=== PATIENT | male | born 1995 | race Hispanic/Latino ===

== ENCOUNTER 2018-01-16 16:14 | Inpatient (IN) | payer BC ==
[2018-01-16 16:53] LABS: #Eosinphils 0.1 thou/uL (0.0-0.7); #Lymphocytes 1.4 thou/uL (1.20-3.40); #Monocytes 0.5 thou/uL (0.11-0.59); #Neutrophils 5.6 thou/uL (1.40-6.50); %Basophils 0.3 % (0.0-1.0); %Eosinophils 0.7 % (0.0-10.0); %Lymphocytes 18.6 % (21.0-51.0); %Neutrophils 73.4 % (42.0-75.0); Hemoglobin 15.7 g/dL (14.0-18.0); Mean Corpuscular HGB CONC 34.5 g/dL (32.0-36.0); Mean Corpuscular Hemoglobin 32.9 pg (27.0-31.0); Mean Corpuscular Volume 95.1 fL (78.0-98.0); Mean Platelet Volume 10.4 fL (7.4-10.4); Platelet Count 174 thou/uL (130-400); RBC Distribution Width 11.9 % (11.5-14.5); Red Blood Cell (RBC) Count 4.79 mill/uL (4.70-6.10); White Blood Cell (WBC) Count 7.7 thou/uL (4.8-10.8)
--- NOTE | 2018-01-16 17:08 | RAD ---
PORTABLE AP CHEST X-RAY 01/16/18 HISTORY: AICD activated seven times while exercising. COMPARISON: None available. FINDINGS: There is a single lead left subclavian AICD lead noted in place. The cardiac silhouette and pulmonary vasculature are within normal limits for the portable technique of the study. The lungs are clear. O sseous structures are intact. IMPRESSION: No acute cardiopulmonary process. POS: H
[2018-01-16 17:12] LABS: ALT (SGPT) 26 U/L (8-55); AST (SGOT) 23 U/L (5-34); Albumin 4.5 g/dL (3.5-5.0); Alkaline Phosphatase 67 U/L (40-150); Anion Gap 12 mmol/L (10-20); BUN (Urea Nitrogen) 12 mg/dL (8.9-20.6); Bilirubin, Total 0.5 mg/dL (0.2-1.2); Calc. Creatinine Clearance 0 mL/min (70-130); Carbon Dioxide 24 mmol/L (22-29); Chloride 108 mmol/L (98-107); Estimated GFR-MDRD 81; Globulin 3.2 g/dL (2.4-3.5); Glucose 93 mg/dL (70-105); Magnesium 1.9 mg/dL (1.6-2.6); Potassium 3.9 mmol/L (3.5-5.1); Protein, Total 7.7 g/dL (6.0-8.3); Sodium 140 mmol/L (136-145)
[2018-01-16] MEDS ORDERED: Amiodarone 200 MG TAB PO SCH (21:00)
[2018-01-16 22:52] VITALS: BMI 34.0
[2018-01-17] MEDS ORDERED: Ondansetron PF 4 MG/2 ML Vial IVP PRN (00:30)
--- NOTE | 2018-01-17 06:34 | HP ---
PRIMARY CARE DOCTOR: Britt Bosch MD CODE STATUS: Full code. TIME OF EVALUATION: 11:00 p.m. CHIEF COMPLAINT: "My AICD was firing." HISTORY OF PRESENT ILLNESS: This is a 23-year-old male patient with past medical history of arrhythmias including V-tach. The patient had been placed in a defibrillator in the past. The patient has reported he has been developing more tolerance to exercises as recommended by Cardiology. However, he states yesterday he got his bike and he was doing some exercise and the defibrillator was started firing multiple times. It has been verified with the [employer] that the patient had some PSVT and one of them turning to V-tach and the patient was shocked by the defibrillator; this report has been given by the ER. The patient reported that he feels lightheaded, but he did not pass out, exacerbated by the exercise, and symptoms improved by itself. REVIEW OF SYSTEMS: CONSTITUTIONAL: No fever, chills, or generalized weakness. RESPIRATORY: No cough, sputum production, or shortness of breath. CARDIOVASCULAR: Palpitations, no chest pain. GASTROINTESTINAL: No nausea. No vomiting, diarrhea, or abdominal pain. CERTIFIED ADDICTION COUNSELOR: The patient has no dizziness or headache. The patient reported feeling lightheaded during the episode. GENITOURINARY: No burning on urination. EXTREMITIES: No leg edema. All other systems were reviewed and negative except for the findings mentioned above. PAST MEDICAL HISTORY: Reported in the HPI. FAMILY HISTORY: Reviewed and noncontributory for current presentation. No reported medical history in the parents. PSYCH HISTORY: No previous psych history. SOCIAL HISTORY: No alcohol or drugs. No smoking history. KNOWN ALLERGIES: No known allergies. REPORTED MEDICATIONS: 1. Aspirin. 2. Carvedilol. 3. Lisinopril. PHYSICAL EXAMINATION: VITAL SIGNS: On presentation 140/86 with a heart rate of 95, respiratory rate was 20, temperature 97.7, pain was 0/10, and oxygen saturation was 99 on room air. GENERAL APPEARANCE: The patient is alert, oriented, not in acute distress. HEENT: Eyes, normal conjunctivae. Moist oral mucosa. Anicteric. No JVD. RESPIRATORY: Bilateral air entry. No rales. No wheezing. Symmetric expansion. CARDIOVASCULAR: Normal rate, regular rhythm. No murmurs. No gallops. No edema. ABDOMEN: Soft. Normal bowel sounds. MUSCULOSKELETAL: Baseline range of motion and strength. No tenderness. SKIN: Warm and intact. No pallor. No rash. No redness. EXTREMITIES: Peripheral pulses are present. Capillary refill seems to be intact. NEURO: No evidence of any new focal weakness. Baseline speech. Cranial nerves seems to be intact. PSYCH: The patient is in good mood. No anxiety. Oriented. Optimal judgment. DIAGNOSTIC STUDIES: EKG was discussed with the performing physician from the ER. The patient had a normal sinus rhythm at the rate of 93. No ectopic conduction with incomplete RBBB. ST segments and T-waves are normal. Medication administration: The patient received amiodarone 400 mg as recommended by Dr. Adler. Chest x-ray was reviewed. The patient has no acute cardiopulmonary process. LABORATORY DATA: Labs were reviewed. The patient has a white count of 7.7, hemoglobin of 15.7, MCV 95, platelet count 174. Chemistry; sodium 140, potassium 3.9, chloride 108, carbon dioxide 24, anion gap 12, BUN 12, creatinine 1.1, GFR 81, glucose 93, calcium 10, magnesium 1.9. Total bilirubin 0.5, AST 23, ALT 26, alkaline phosphatase 67. Troponin was negative. Beta natriuretic peptide 16.4. Serum total protein 7.7, albumin 5.5, globulin 3.2, albumin-globulin ratio is 1.4. ASSESSMENT AND PLAN: The patient was placed in the hospital with the following medical problems: 1. Arrhythmia, paroxysmal supraventricular tachycardia, turning into ventricular tachycardia, had received cardioversion from [facility], Dr. Adler has been consulted. Amiodarone 400 mg has been given and the patient will need evaluation in the morning. We will monitor on tele. We will reconcile home medications. 2. Deep venous thrombosis prophylaxis. 3. Risk assessment. The patient is at high risk due to sudden life-threatening arrhythmias. Job ID: [id number]
[2018-01-17 07:13] LABS: #Basophils 0.1 thou/uL (0.0-0.2); #Eosinphils 0.1 thou/uL (0.0-0.7); #Lymphocytes 1.9 thou/uL (1.20-3.40); #Monocytes 0.9 thou/uL (0.11-0.59); #Neutrophils 4.4 thou/uL (1.40-6.50); %Basophils 0.7 % (0.0-1.0); %Eosinophils 1.4 % (0.0-10.0); %Lymphocytes 26.3 % (21.0-51.0); %Neutrophils 59.6 % (42.0-75.0); Hemoglobin 14.5 g/dL (14.0-18.0); Mean Corpuscular HGB CONC 33.1 g/dL (32.0-36.0); Mean Corpuscular Hemoglobin 31.5 pg (27.0-31.0); Mean Corpuscular Volume 95.1 fL (78.0-98.0); Mean Platelet Volume 10.6 fL (7.4-10.4); Platelet Count 169 thou/uL (130-400); Red Blood Cell (RBC) Count 4.61 mill/uL (4.70-6.10); White Blood Cell (WBC) Count 7.4 thou/uL (4.8-10.8)
[2018-01-17 07:34] LABS: Anion Gap 11 mmol/L (10-20); BUN (Urea Nitrogen) 18 mg/dL (8.9-20.6); Calc. Creatinine Clearance 167 mL/min (70-130); Calcium 9.7 mg/dL (7.8-10.44); Carbon Dioxide 26 mmol/L (22-29); Chloride 107 mmol/L (98-107); Estimated GFR-MDRD 77; Glucose 85 mg/dL (70-105); Potassium 3.4 mmol/L (3.5-5.1); Sodium 141 mmol/L (136-145)
[2018-01-17] MEDS: Amiodarone 200 MG TAB PO SCH ×3 (09:01→20:29)
[2018-01-17] MEDS: Lisinopril 5 MG TAB PO SCH ×2 (09:01→20:30)
[2018-01-17] MEDS: Aspirin 81 mg Enteric Coated Tablet PO SCH (09:02)
[2018-01-17] MEDS: Carvedilol 6.25 MG TAB PO SCH ×2 (09:02→20:29)
[2018-01-17] MEDS: Enoxaparin Sodium 40 MG/0.4 ML SYRINGE SC SCH (09:03)
--- NOTE | 2018-01-17 11:57 | PDOC.PN ---
- Subjective Encounter Start Date: 01/17/18 Encounter Start Time: 10:30 Subjective: Examined this morning, admitted for 9 shocks from AICD yesterday -: Denies c/o today, denies further activity from AICD - Objective Resuscitation Status - Order Detail: 01/17/18 00:30 Resuscitation Status Routine Resuscitation Status: FULL: Full Resuscitation Vital Signs & Weight: Vital Signs (12 hours) Temp Pulse Resp BP BP Pulse Ox 01/17/18 11:36 97.6 F 81 20 115/68 98 01/17/18 07:08 98.4 F 67 16 120/61 97 01/17/18 03:35 81 18 112/62 97 Weight Weight 120.468 kg I&O: 01/16/18 01/17/18 01/18/18 06:59 06:59 06:59 Intake Total 480 Balance 480 Result Diagrams: 01/17/18 06:17 01/17/18 06:17 Phys Exam - Physical Examination HEENT: PERRLA, moist MMs Neck: no nodes, no JVD Respiratory: clear to auscultation bilateral Cardiovascular: RRR, no significant murmur Gastrointestinal: soft, non-tender Musculoskeletal: no edema, pulses present Neurological: non-focal, normal sensation Lymphatic: no nodes Psychiatric: normal affect, A&O x 3 Skin: no rash, normal turgor Dx/Plan (1) Arrhythmia Code(s): I49.9 - CARDIAC ARRHYTHMIA, UNSPECIFIED Status: Acute Qualifiers: Arrhythmia type: ventricular tachycardia Qualified Code(s): I47.2 - Ventricular tachycardia Plan: Cardiology and EP consultation, Dr. Adler added Cordarone to his daily meds (2) Defibrillator discharge Code(s): Z45.02 - ENCNTR FOR ADJUST AND MGMT OF AUTOMATIC IMPLNTBL CARD DEFIB Status: Acute - Plan cont current plan of care, DVT proph w/SCDs -: Cardiology and EP consultation, added Cordarone -: Will continue to monitor heart rhythm, labs, VS * .
--- NOTE | 2018-01-17 21:28 | CON ---
DATE OF CONSULTATION: TYPE OF CONSULTATION: Cardiology PRIMARY CARE DOCTOR: Britt Bosch MD PRIMARY NURSES SUPERINTENDENT: Dr. Medina. REFERRING PHYSICIAN: Suzy Thompson MD REASON FOR CARDIOLOGY CONSULT: Multiple discharge from his defibrillator. HISTORY OF PRESENT ILLNESS: Mr. Wily Dixon is a 23-year-old male with significant history of SVT, status post cardioversion and AICD placement in August 2017. He has been following up with Dr. Medina and Dr. Townsend for his history of SVT and AICD placement. He has been doing relatively well since he had defibrillator placement in August 2017. He has been exercising 4 to 5 times a week without any cardiac complaints. In the October 2017, he followed up with Dr. Medina, and his amiodarone was stopped as his defibrillator interrogation showed normal and the patient also followed up with Dr. Townsend about one and a half month ago and he was told that his AICD did not show any abnormal arrhythmia and he was told to continue his current treatment. Yesterday, when he was bicycling outside the park he noticed that suddenly he felt so tried and when he stopped he felt some pushing like feeling from his back. He had it several times within 5 minutes and around 6th or 7th event shock, he called his friends, he was transferred to emergency department for further evaluation and treatment. The patient's AICD was interrogated, showing that he had total 9 treated episodes in VT zone yesterday around 4:30, he had total 20 episodes of SVT detected and also the AICD interrogation showed high RV threshold on January 16, 2018. He reported that he never had discharge before since defibrillator placement in August 2017. He never had cardiac complaints, shortness of breath, dizziness, lightheadedness, or any other complaints except about one month ago he presented to the ER for dizziness secondary to the dehydration. PAST MEDICAL HISTORY: History of SVT status post cardioversion in August 2017. PAST SURGICAL HISTORY: Defibrillator placement in August 2017, cardiac catheterization in August 2017, which showed normal. FAMILY HISTORY: The patient's father had history of hypertension. SOCIAL HISTORY: He is single. He works as a full-time. He denies tobacco, alcohol, or drug abuse. He exercises regularly. ALLERGIES: HE HAS NO KNOWN DRUG ALLERGIES. MEDICATIONS: Home medications: 1. Lisinopril 5 mg twice a day. 2. Carvedilol 6.25 mg twice a day. 3. Aspirin 81 mg once a day. REVIEW OF SYSTEMS: Twelve-point review of systems was negative unless otherwise mentioned in the HPI. PHYSICAL EXAMINATION: VITAL SIGNS: Blood pressure 120/61, temperature 98.4, pulse is 67 sinus rhythm, respiratory rate 16, and O2 saturation 97% on room air. GENERAL: The patient is alert and oriented x4, not in acute distress. HEENT: Eyes; extraocular muscle movements are intact. ENT and mouth, oral and nasal mucosa are moist without lesions. NECK: No JVD. Normal range of motion. RESPIRATORY: Clear to auscultation bilaterally. No wheezing, rales, or rhonchi noted. CARDIOVASCULAR: Regular rate and rhythm. Normal S1 and S2. There is no S3 or S4. No significant murmurs, heaves, or thrill noted. 2+ pulses in upper and lower extremities. Bilateral lower extremities, no edema. Carotid pulses are present without thrill or bruit. ABDOMEN: Soft, nontender, palpated. Bowel sounds are present. MUSCULOSKELETAL: The patient is able to move all extremities. SKIN: Warm and dry. No lesion, bruise, or rash noted. PSYCHIATRIC: The patient's mood is affect. No anxiety. NEUROLOGIC: The patient is alert and oriented x4. Nonfocal. LABORATORY DATA: WBC 7.4, hemoglobin 14.5, hematocrit 43.9, platelet 169. Sodium 141, potassium 3.4, BUN 18, creatinine 1.16. AST 23, ALT 26. BNP 16.4. Troponins 0.010. The patient's chest x-ray showed no acute cardiopulmonary process. The patient had a cardiac catheterization in August 2017 showed normal coronary artery disease with EF 15% to 20%. The patient had echocardiogram done at Dr. Medina's office in October 2017, showed EF 50% to 55%. ASSESSMENT AND PLAN: 1. History of ventricular tachycardia, status post AICD discharge. The patient already received amiodarone 400 mg last night. We would like patient's amiodarone from 400 three times a day for 1 week and we would like to wean it down. Also, the patient may need AICD evaluation by . At this moment, the patient did not have any abnormal rhythm on the telemetry. We would like to continue monitor on the telemetry. 2. Known ischemic cardiomyopathy status post AICD placement in August 2017. The patient's EF in October 2017 showed 50% to 55%. The patient denied any shortness of breath, abdomen bloating, or edema in the lower extremities. The patient is doing very well. The patient is going to follow up with EP, Dr. Townsend as outpatient. Thank you very much for allowing the Cardiology Service to participate in the care of this patient. We will follow along the patient's care team and make further recommendations as appropriate. Job ID: [id number]
--- NOTE | 2018-01-17 22:08 | CON ---
DATE OF CONSULTATION: 01/17/2018 CARDIOLOGY CONSULT NOTE INDICATION FOR CONSULTATION: A 23-year-old patient status post AICD implant for severe nonischemic cardiomyopathy who received 5 shocks yesterday while exercising. We were asked to see him due to the shocks from the ICD. HISTORY OF PRESENT ILLNESS: This very unfortunate 23-year-old gentleman was seen back in August of this year. He was found to have a severe decrease in left ventricular systolic function, it was deemed to be nonischemic. He had normal coronaries. Even he underwent an AICD implant, he has been followed by Dr. Medina and over time, the ejection fraction has now essentially improved, almost back to normal. His ejection fraction by last echocardiogram in October showed ejection fraction 50% to 55%. He had been placed on amiodarone in the past, this was also discontinued. The patient was back to his routine activities. He was out riding a bicycle yesterday, a mountain bike, when he knows he was feeling somewhat tired. He then stopped to rest and then received 5 shocks in succession for what appeared to be ventricular tachycardia. The device had tried to pace terminate several times from perhaps atrial tachycardia therapies, but then shocked the patient 5 times. These were all unsuccessful. He did receive earlier some ventricular therapies also, but most likely he was shocked for what was not true ventricular tachycardia. He may need to have his device somewhat readjusted to obtain a higher ventricular rate threshold prior to giving therapies and did not appear that there was a device malfunction, but appears that the patient was having tachycardia due to exercise and was misinterpreted by the device most likely. At this time, he is stable and denies any complaints. He did have the shocks yesterday. He was aware while he was doing the shocks. He did not have any syncopal episodes and otherwise has remained stable. PHYSICAL EXAMINATION: VITAL SIGNS: His blood pressure is 111/62. He is afebrile. Heart rate is in the 70s at this time and shows a sinus rhythm with occasional PVCs. Respiratory rate is 18, and O2 saturation is 96%. HEENT: Shows head to be normocephalic, atraumatic. Carotid pulses are present. CHEST: Clear to auscultation without rales, rhonchi, or wheezing. CARDIOVASCULAR: Reveals a regular rate and rhythm at this time with normal S1 and S2. I cannot hear an S3 or an S4. There were no significant murmurs, heaves, thrills, bruits, or rubs. ABDOMEN: Shows obesity with positive bowel sounds. No organomegaly or masses were noted. Femoral pulses are present. EXTREMITIES: Show no clubbing, cyanosis, or edema. NEUROLOGIC: Neurologically, the patient appears to be fully intact. SKIN: Warm and dry. LABORATORY DATA: Shows a WBC of 7.4, hemoglobin 14.5. Sodium is 141, potassium is 3.4, creatinine is 1.16. Blood sugar was 85. Please refer to the note already dictated by nurse practitioner for his past medical history, social history, family history, review of systems, medications, and allergies. IMPRESSION: 1. A young gentleman who had five shocks from his AICD, possibly due to misinterpretation by the device of possible arrhythmia. This may have been sinus tachycardia or supraventricular tachycardia. We will need to re-evaluate this tomorrow with the litharge supervisor. He may need to have a higher threshold for the tachycardia. We will discuss this with the litharge supervisor. Dr. Medina will see the patient tomorrow. 2. History of obesity. It appears that the patient has lost significant amount of weight loss in the last six months by dieting and exercise. He was over 300 pounds back in August and now his weight is 265 pounds. 3. Status post AICD implant. The overall function of the device appears to be normal except for possibly the episodes which were misinterpreted hopefully as ventricular tachycardia, but most likely were due to sinus tachycardia or supraventricular tachycardia with perhaps an aberration. 4. History of cardiomyopathy, which appears to have significantly improved. Uncertain etiology of the cardiomyopathy to begin with, but his ejection fraction was severely decreased back in August. He did have normal coronaries by cardiac catheterization. In his last echocardiogram in October, it showed ejection fraction 50% to 55%. We will also obtain an echocardiogram again just to ensure that his ejection fraction remains stable. Job ID: [id number]
[2018-01-18] MEDS: Enoxaparin Sodium 40 MG/0.4 ML SYRINGE SC SCH (08:14)
[2018-01-18] MEDS ORDERED: Iopamidol 370 76% 50 ML VIAL FS ONE (08:57)
[2018-01-18 09:00] LABS: #Basophils 0.1 thou/uL (0.0-0.2); #Eosinphils 0.1 thou/uL (0.0-0.7); #Lymphocytes 1.6 thou/uL (1.20-3.40); #Monocytes 0.6 thou/uL (0.11-0.59); #Neutrophils 2.9 thou/uL (1.40-6.50); %Basophils 1.2 % (0.0-1.0); %Lymphocytes 31.4 % (21.0-51.0); %Monocytes 10.7 % (0.0-10.0); %Neutrophils 55.8 % (42.0-75.0); Mean Corpuscular HGB CONC 32.3 g/dL (32.0-36.0); Mean Corpuscular Hemoglobin 30.8 pg (27.0-31.0); Mean Corpuscular Volume 95.3 fL (78.0-98.0); Mean Platelet Volume 10.3 fL (7.4-10.4); Platelet Count 170 thou/uL (130-400); RBC Distribution Width 11.9 % (11.5-14.5); Red Blood Cell (RBC) Count 4.88 mill/uL (4.70-6.10); White Blood Cell (WBC) Count 5.2 thou/uL (4.8-10.8)
[2018-01-18 09:17] LABS: Chloride 106 mmol/L (98-107); Potassium 4.1 mmol/L (3.5-5.1); Sodium 138 mmol/L (136-145)
[2018-01-18 09:20] LABS: Anion Gap 11 mmol/L (10-20); Carbon Dioxide 25 mmol/L (22-29)
[2018-01-18 09:21] LABS: BUN (Urea Nitrogen) 18 mg/dL (8.9-20.6); Calc. Creatinine Clearance 175 mL/min (70-130); Calcium 9.8 mg/dL (7.8-10.44); Estimated GFR-MDRD 81; Glucose 95 mg/dL (70-105)
[2018-01-18] MEDS: Carvedilol 6.25 MG TAB PO SCH ×2 (10:06→20:23)
[2018-01-18] MEDS: Aspirin 81 mg Enteric Coated Tablet PO SCH (10:07)
[2018-01-18] MEDS: Lisinopril 5 MG TAB PO SCH ×2 (10:07→20:23)
[2018-01-18] MEDS: Amiodarone 200 MG TAB PO SCH ×3 (10:07→20:23)
--- NOTE | 2018-01-18 14:12 | PDOC.PN ---
- Subjective Encounter Start Date: 01/18/18 Encounter Start Time: 14:10 Patient lying in bed, no events over night. EP Dr Townsend following for likely AICD wire revision. He denies chest pain, shortness of breath or abdominal pain. - Objective Resuscitation Status - Order Detail: 01/17/18 00:30 Resuscitation Status Routine Resuscitation Status: FULL: Full Resuscitation MAR Reviewed: Yes Vital Signs & Weight: Vital Signs (12 hours) Temp Pulse Resp BP BP Pulse Ox 01/18/18 11:12 97.5 F L 67 15 130/80 99 01/18/18 10:07 63 01/18/18 10:06 120/78 01/18/18 07:23 97.7 F 63 16 120/67 99 01/18/18 04:18 97.6 F 58 L 17 113/59 L 100 Weight Weight 265 lb 9.376 oz I&O: 01/17/18 01/18/18 01/19/18 06:59 06:59 06:59 Intake Total 480 1370 Balance 480 1370 Result Diagrams: 01/18/18 08:24 01/18/18 08:24 Radiology Reviewed by me: Yes EKG Reviewed by me: Yes Phys Exam - Physical Examination Constitutional: NAD HEENT: PERRLA, moist MMs, sclera anicteric, TM's clear, oral pharynx no lesions Neck: no nodes, no JVD, supple, full ROM Respiratory: no wheezing, no rhonchi, clear to auscultation bilateral Cardiovascular: RRR, no significant murmur, no rub Gastrointestinal: soft, non-tender, no distention, positive bowel sounds Musculoskeletal: no edema, pulses present Neurological: non-focal, normal sensation, moves all 4 limbs Lymphatic: no nodes Psychiatric: normal affect, A&O x 3 Skin: no rash, normal turgor, cap refill <2 seconds Dx/Plan - Plan cont current plan of care, DVT proph w/lovenox * Cardiology and EP services following. Plan for AICD wire revision today/ tomorrow * Appreciate further recommendations * Continue on current medical management. * EP recommending d/c amiodarone, but increase carvedilol
[2018-01-18] MEDS ORDERED: CEFAZOLIN 2 GM/50 ML BAG ONE ×2 (15:53→16:07)
[2018-01-18] MEDS ORDERED: Midazolam HCl 2 mg/2 ml Vial ONE (16:02)
[2018-01-18] MEDS ORDERED: Propofol 500 MG/50 ML VIAL ONE ×3 (16:04→16:51)
[2018-01-18] MEDS ORDERED: Fentanyl 100 MCG/2 ML VIAL ONE (16:32)
[2018-01-18] MEDS ORDERED: Ondansetron HCl/PF 4 MG/2 ML Vial IVP PRN (17:07)
[2018-01-18] MEDS ORDERED: Promethazine HCl 25 MG/ML VIAL SLOW IVP PRN (17:07)
[2018-01-18] MEDS ORDERED: Promethazine HCl 25 MG/ML VIAL IM PRN (17:07)
--- NOTE | 2018-01-18 19:10 | RAD ---
FRONTAL RADIOGRAPH CHEST: 01/18/2018 HISTORY: Transvenous pacing device placement. COMPARISON: 01/16/2018 FINDINGS: Shallow inspiration limits detailed assessment of the perihilar regions in both lung bases. No pneum othorax. A single lead transvenous AICD inserted via a left subclavian approach, with a lead overlyi ng the midline, inferior aspect of the cardiac silhouette. No focal consolidation or alveolar edema. IMPRESSION: No pneumothorax. No focal consolidation or alveolar edema. POS: AMANDA
[2018-01-18] MEDS: Acetaminophen 325 MG TAB PO PRN (20:23)
--- NOTE | 2018-01-18 20:42 | CON ---
DATE OF CONSULTATION: 01/18/2018 ELECTROPHYSIOLOGY CONSULTATION REASON FOR CONSULTATION: AICD shocks. HISTORY OF PRESENT ILLNESS: Mr. Julien is a pleasant 23-year-old gentleman, known to our practice for for original presentation with sustained VT and newly found nonischemic cardiomyopathy with severely reduced ejection fraction of 15% to 20% by echocardiogram in August of 2017. He underwent a single-chamber ICD implant and his cardiomyopathy has been medically managed by Dr. Medina as an outpatient since that time. We saw him in clinic in November. At that time, he had been taken off amiodarone. He had initially presented to the hospital in August for sustained ventricular tachycardia and been placed on amiodarone. His presenting VT was in the 170 to 175 beats per minute range and as mentioned, he has since come off his amiodarone. In November, he also told us that his Coreg had been cutback and is currently at 6.25 mg twice a day. At that time, he had a normal device check with adequate lead parameters and stable functioning device. Unfortunately, he presented to the hospital after receiving 5 to 6 ICD shocks since rapid succession while he was exercising. His device was interrogated. He was completely awake and aware while receiving the shocks. He did not have any dizziness, near syncope, or true syncopal episodes. Currently, Mr. Julien is resting comfortably in bed. He denies any heart racing, palpitations, chest pain, pressure, syncope, near syncope, stroke, stroke-like symptoms, or recurrent ICD discharges since the initial episode prior to him presenting to the hospital. REVIEW OF SYSTEMS: A 12-point review of systems was conducted, is negative except that listed above in HPI. PAST MEDICAL HISTORY: 1. Sustained ventricular tachycardia (rate 170 to 175 beats per minute) on presentation, requiring IV amiodarone first and shock for termination. 2. Nonischemic cardiomyopathy with a severely reduced ejection fraction of 15% to 20% by echo in August of 2017. 3. Coronary artery disease risk factors, none. 4. History of morbid obesity. ALLERGIES: NONE. HOME MEDICATIONS: 1. Lisinopril 5 mg p.o. b.i.d. 2. Aspirin 81 mg daily. 3. Coreg 6.25 mg p.o. b.i.d. FAMILY HISTORY: Positive for hypertension. Negative for sudden cardiac or early-onset coronary artery disease. SOCIAL HISTORY: Single. Works in IT. Negative for alcohol, tobacco, or illicit drug use. Regular exercise. PHYSICAL EXAMINATION: VITAL SIGNS: Temperature 97.7, pulse 65, blood pressure 120/67, respirations 16 , and oxygen is 99% on room air. GENERAL: The patient is alert and oriented. Speech is clear. Affect is appropriate. He is well groomed, well nourished. HEENT: Normocephalic and atraumatic. Sclerae anicteric. EOMs are intact. Oral mucosa moist and pink. NECK: Supple without jugular venous distention. Thyroid is not palpable. PULMONARY: Lungs are clear to auscultation bilaterally without wheezes, crackles, or rhonchi. Respirations are even and unlabored. CARDIAC: Peach S1 and S2. No murmur, rub, or gallop. Device is seated at the left infraclavicular fossa without swelling, bruising, or worsening of drainage. GASTROINTESTINAL: Abdomen is soft and nontender without palpable masses. EXTREMITIES: Warm and dry to touch without clubbing, cyanosis, or edema. NEUROLOGIC: Grossly intact and nonfocal with cranial nerves 2 through 12. LABORATORY DATA: Hematology is reviewed and unremarkable. Chemistry, potassium 4.1, creatinine is 1.1, and magnesium 2.0. BNP 16. Device check, the patient has a [employer] Viva AF MRI compatible single-chamber ICD. Date of implant is 08/13/2017. Lead impedance is 380 ohms, capture threshold is 5.0 V at 1 millisecond, current mode is VVI at 40. VT detection 150 to 171. Permanent VT detection zone is 171 to 250. VF is greater than 171. Multiple fluid index is suggestive of ongoing fluid accumulation since mid September. There is 1 episode of nonsustained ventricular tachycardia that occurred in September that was 7 seconds in duration and spontaneously terminated. The device logged an ongoing VT episode on January 16 that was treated with 13 rounds of ATP and eventually 5 shocks for VT/VF, all of which failed, this occurred while the patient was exercising heavily and likely the device misinterpreted his rhythm for ventricular arrhythmia that would require defibrillation. These were inappropriately delivered shocks. Echocardiogram, EF 50% to 55%. Chest x-ray on 01/16/2018, no acute cardiopulmonary processes, but by comparison from chest x-ray the day after device implanted appears the RV lead has changed position. This would also account for the drastic jump in capture threshold. IMPRESSION: 1. Nonischemic cardiomyopathy with severely reduced ejection fraction in the past, etiology unknown. Previously 15% to 20%, now 50% to 55%. 2. Single-chamber implantable cardioverter-defibrillator in-situ with recent inappropriately delivered shocks for what it interpreted as ventricular tachycardia, but likely was sinus tachycardia severely elevated heart rate from exercise. Nonsustained VT episode was seen in September, but otherwise no recurrences been seen. 3. Normal coronary arteries by left heart catheterization in August. 4. Obesity, substantial weight loss in the past 6 months. Previously 300 pounds , now 265 pounds. RECOMMENDATIONS: I had a discussion with Mr. Julien about his device function and his malpositioned lead in addition to the device inappropriately detecting ventricular tachycardia. For his lead, he will require lead revision. I will keep him n.p.o. and we discussed lead revision later this day. The risks include swelling, bruising, infection, and pain at the incision site. He will require limb restrictions after the lead revision and also a week of Keflex and prophylactic antibiotic coverage. The patient is in agreement with this plan. Regarding his ICD shocks, when he was having sustained ventricular tachycardia, his rate was 170 beats per minute. I will further adjust his VT detection zone to higher rates, if no ventricular arrhythmias inducible on NIPS. For now, I would gradually increase his carvedilol as tolerated to a goal of 25 mg b.i.d. We will discontinue amiodarone. Thank you for allowing us to participate in the care of this patient. Job ID: [id number] [facility]
[2018-01-19] MEDS: Acetaminophen 325 MG TAB PO PRN ×2 (09:02→19:26)
[2018-01-19] MEDS: Lisinopril 5 MG TAB PO SCH ×2 (09:03→21:13)
[2018-01-19] MEDS: Carvedilol 6.25 MG TAB PO SCH ×2 (09:03→21:13)
[2018-01-19] MEDS: Aspirin 81 mg Enteric Coated Tablet PO SCH (09:04)
[2018-01-19] MEDS: Enoxaparin Sodium 40 MG/0.4 ML SYRINGE SC SCH (09:08)
[2018-01-19] MEDS: Amiodarone 200 MG TAB PO SCH (09:47)
[2018-01-19] MEDS: CEFAZOLIN 2 GM/50 ML-DEXTROSE 2 GM in Premix Bag 1 BAG IVPB SCH ×3 (12:51→22:11)
[2018-01-19] MEDS ORDERED: Fentanyl 100 MCG/2 ML VIAL ONE ×2 (14:27→16:40)
[2018-01-19] MEDS ORDERED: Propofol 500 MG/50 ML VIAL ONE ×2 (14:28→16:15)
[2018-01-19] MEDS ORDERED: Midazolam HCl 2 mg/2 ml Vial ONE ×2 (14:37→16:17)
[2018-01-19] MEDS ORDERED: CEFAZOLIN 2 GM/50 ML BAG ONE (15:31)
[2018-01-19] MEDS ORDERED: Lidocaine 1% (PF) 30 ML VIAL ONE (15:53)
[2018-01-19] MEDS ORDERED: Morphine Sulfate 2 MG/ML SYRINGE SLOW IVP PRN (17:22)
[2018-01-19] MEDS ORDERED: HYDROmorphone 2 MG/ML VIAL SLOW IVP PRN (17:22)
[2018-01-19] MEDS ORDERED: PACU-Morphine 4MG/ML VIAL SLOW IVP PRN (17:22)
[2018-01-19] MEDS ORDERED: Meperidine HCl/PF 25 MG/ML VIAL SLOW IVP PRN (17:22)
[2018-01-19] MEDS ORDERED: Ondansetron HCl/PF 4 MG/2 ML Vial IVP PRN (17:22)
[2018-01-19] MEDS ORDERED: Promethazine HCl 25 MG/ML VIAL SLOW IVP PRN (17:22)
[2018-01-19] MEDS ORDERED: Promethazine HCl 25 MG/ML VIAL IM PRN (17:22)
--- NOTE | 2018-01-19 18:12 | PDOC.PN ---
- Subjective Encounter Start Date: 01/19/18 Encounter Start Time: 10:00 Patient seen this morning prior to going down with Dr Townsend for testing of AICD. He denies any symptoms at that time. He underwent revision of AICD yesterday and tolerated well. No chest pain, shortness of breath or abdominal pain. - Objective Resuscitation Status - Order Detail: 01/17/18 00:30 Resuscitation Status Routine Resuscitation Status: FULL: Full Resuscitation MAR Reviewed: Yes Vital Signs & Weight: Vital Signs (12 hours) Temp Pulse Resp BP BP Pulse Ox 01/19/18 17:49 64 15 121/71 100 01/19/18 11:11 98.5 F 65 16 123/74 99 01/19/18 09:03 67 120/78 01/19/18 07:19 98.3 F 67 19 120/65 99 Weight Weight 265 lb 9.376 oz I&O: 01/18/18 01/19/18 01/20/18 06:59 06:59 06:59 Intake Total 1370 360 50 Balance 1370 360 50 Result Diagrams: 01/18/18 08:24 01/18/18 08:24 Radiology Reviewed by me: Yes EKG Reviewed by me: Yes <Irineo Mei - Last Filed: 01/19/18 18:11> - Objective Resuscitation Status - Order Detail: 01/17/18 00:30 Resuscitation Status Routine Resuscitation Status: FULL: Full Resuscitation Vital Signs & Weight: Vital Signs (12 hours) Temp Pulse Resp BP BP Pulse Ox 01/19/18 17:49 64 15 121/71 100 01/19/18 11:11 98.5 F 65 16 123/74 99 01/19/18 09:03 67 120/78 01/19/18 07:19 98.3 F 67 19 120/65 99 Weight Weight 265 lb 9.376 oz I&O: 01/18/18 01/19/18 01/20/18 06:59 06:59 06:59 Intake Total 1370 360 50 Balance 1370 360 50 Result Diagrams: 01/18/18 08:24 01/18/18 08:24 <Jad Monroe - Last Filed: 01/19/18 19:09> Phys Exam - Physical Examination Constitutional: NAD HEENT: PERRLA, moist MMs, oral pharynx no lesions, 2+ tonsils Neck: no nodes, no JVD, supple, full ROM Respiratory: no wheezing, no rales, no rhonchi, clear to auscultation bilateral Cardiovascular: RRR, no significant murmur, no rub Gastrointestinal: soft, non-tender, no distention, positive bowel sounds Musculoskeletal: no edema, pulses present Neurological: non-focal, normal sensation, moves all 4 limbs Lymphatic: no nodes Skin: no rash, normal turgor, cap refill <2 seconds Deviation from normal: Site clean and intact, no bleeding or drainage, mild TTP <Irineo Mei - Last Filed: 01/19/18 18:11> Dx/Plan (1) Arrhythmia Code(s): I49.9 - CARDIAC ARRHYTHMIA, UNSPECIFIED Status: Acute Qualifiers: Arrhythmia type: ventricular tachycardia Qualified Code(s): I47.2 - Ventricular tachycardia (2) Defibrillator discharge Code(s): Z45.02 - ENCNTR FOR ADJUST AND MGMT OF AUTOMATIC IMPLNTBL CARD DEFIB Status: Acute - Plan cont current plan of care, continue antibiotics * EP services Dr Townsend is following for AICD, await testing and further recommendations * Continue medical management * Continue home medications * Patient likely discharged home if all stable from EP services <Irineo Mei - Last Filed: 01/19/18 18:11> - Plan Patient seen and examined. No new complaints. Agree with the above assessment and plan. <Jad Monroe - Last Filed: 01/19/18 19:09>
--- NOTE | 2018-01-19 20:44 | RAD ---
CHEST ONE VIEW: HISTORY: A 23-year-old male with a history of post bleed insertion. FINDINGS: The left ICD has been modified since the prior study of 01/18/2018. Surgical suad overly the left upper outer lateral chest. No pneumothorax or pleural effusion. No overt congestive heart failure. IMPRESSION: Status post left implantable cardioverter-defibrillator modification. No acute intrathoracic disease . POS: ANNA
[2018-01-20] MEDS: Acetaminophen 325 MG TAB PO PRN ×2 (02:08→12:21)
--- NOTE | 2018-01-20 02:13 | OP ---
DATE OF PROCEDURE: 01/19/2018 TYPE OF REPORT: Defibrillation threshold testing. REASON FOR PROCEDURE: Mr. Julien is a 23-year-old young man with history of cardiomyopathy, albeit improving LV function. He had received ICD shocks, and his ICD lead was revised due to high pacing thresholds yesterday. Postop DFT revealed high defibrillation thresholds. He is here for repeat DFT procedure and possible subcutaneous coil placement. DESCRIPTION OF PROCEDURE: The patient received propofol by Anesthesia. After adequate level of sedation achieved, ventricular fibrillation was induced with a T-shock method. The VF was appropriately detected and an initial 25-joule shock failed to cardiovert him. Also, subsequent 30-joule shock was unsuccessful. Eventual 35-joule shock was also not successful, and at this point, external 360 joule shock was delivered terminating the VF. CONCLUSION: Unsuccessful DFT, requiring external defibrillation to terminate ventricular fibrillation. PLAN: Proceed with subcutaneous coil placement. Job ID: [id number] [facility]
[2018-01-20] MEDS: Cephalexin 250 MG CAP PO SCH ×2 (05:55→12:19)
[2018-01-20] MEDS: CEFAZOLIN 2 GM/50 ML-DEXTROSE 2 GM in Premix Bag 1 BAG IVPB SCH (05:56)
[2018-01-20] MEDS: Aspirin 81 mg Enteric Coated Tablet PO SCH (08:39)
[2018-01-20] MEDS: Lisinopril 5 MG TAB PO SCH (08:39)
[2018-01-20] MEDS: Enoxaparin Sodium 40 MG/0.4 ML SYRINGE SC SCH (08:39)
[2018-01-20] MEDS: Carvedilol 6.25 MG TAB PO SCH (08:39)
[2018-01-20 11:58] VITALS: BP 123/65; TEMP 97.7
--- NOTE | 2018-01-21 14:14 | EKG ---
Test Reason : Blood Pressure : / mmHG Vent. Rate : 093 BPM Atrial Rate : 093 BPM P-R Int : 168 ms QRS Dur : 104 ms QT Int : 362 ms P-R-T Axes : 053 064 049 degrees QTc Int : 450 ms Normal sinus rhythm Incomplete right bundle branch block Borderline ECG Confirmed by CASPER HORAN DO ([id number]), business editor PENNY MAR ([id number] on 01/21/2018 2:14:10 PM Referred By: Confirmed By:CASPER HORAN DO
[2018-01-24] MEDS ORDERED: Amiodarone 200 MG TAB PO SCH (09:00)
[2018-01-31] MEDS ORDERED: Amiodarone 200 MG TAB PO SCH (09:00)
[2018-02-07] MEDS ORDERED: Amiodarone 200 MG TAB PO SCH (09:00)
[2018-02-14] MEDS ORDERED: Amiodarone 200 MG TAB PO SCH (09:00)
== END 2018-01-20 14:20 | disposition home or self-care (01) | DRG 245 ==
LOC: ERS 16:14 → 2SW 20:41 → OBSVTOIN 20:41
PROVIDERS: ADMIT Hospitalist; ATTEND Hospitalist
PROC: 02WA0MZ Revision of Cardiac Lead in Heart, Open Approach (ICD-10-PCS; principal; 2018-01-18)
PROC: 0JH608Z Insertion of Defibrillator Generator into Chest Subcutaneous Tissue and Fascia, Open Approach (ICD-10-PCS; 2018-01-19)
PROC: 0JH60PZ Insertion of Cardiac Rhythm Related Device into Chest Subcutaneous Tissue and Fascia, Open Approach (ICD-10-PCS; 2018-01-19)
PROC: 5A2204Z Restoration of Cardiac Rhythm, Single (ICD-10-PCS; 2018-01-19)
DX: T82.198A Other mechanical complication of other cardiac electronic device, initial encounter (principal); I47.1 Supraventricular tachycardia; E66.01 Morbid (severe) obesity due to excess calories; Y83.8 Other surgical procedures as the cause of abnormal reaction of the patient, or of later complication, without mention of misadventure at the time of the procedure; I25.5 Ischemic cardiomyopathy; Z68.34 Body mass index [BMI] 34.0-34.9, adult
CPT/HCPCS: 33216; 36005; 36415; 71045; 75820; 80048; 80053; 83735; 83880; 84484; 85025; 93005; 93306; 93642; C1896; J1650; J2001; J2250; J2405; J2704; J3010; J3490